=== PATIENT | male | born 1995 | race Caucasian/White ===

== ENCOUNTER 2019-07-01 10:31 | Emergency (ER) | payer SELFPAY ==
[2019-07-01] MEDS ORDERED: Lidocaine 1% w/Epinephrine 1:100K 20 ML VIAL ONE (12:24)
[2019-07-01] MEDS ORDERED: Adacel (T-DAP) 0.5 ML SYRINGE ONE (12:25)
[2019-07-01] MEDS ORDERED: Bacitracin 1 PK ONE (13:15)
== END 2019-07-01 13:50 | disposition home or self-care (01) ==
LOC: ERS 10:31
DX: S01.411A Laceration without foreign body of right cheek and temporomandibular area, initial encounter (principal); Z23 Encounter for immunization; W25.XXXA Contact with sharp glass, initial encounter; Y99.8 Other external cause status
CPT/HCPCS: 12013; 90471; 90715